=== PATIENT | male | born 1940 | race Caucasian/White ===

== ENCOUNTER 2018-04-03 12:12 | Emergency (ER) | payer MEDICAID, MEDICARE ==
[2018-04-03 12:12] VITALS: BMI 32.6
[2018-04-03 12:19] VITALS: O2SAT 95
[2018-04-03] MEDS ORDERED: Metoprolol Succinate 50 mg XL Tab PO STA (13:19)
[2018-04-03] MEDS ORDERED: Sodium Chloride 0.9% 1,000 ML IV ONE (13:24)
[2018-04-03 13:55] LABS: BASO # 0.1 K/uL (0.0-0.2); BASO % 0.8 % (0.0-2.0); EOS # 0.2 K/uL (0.0-0.7); EOS % 3.6 % (0.0-4.0); HEMOGLOBIN 14.7 g/dL (12.0-18.0); LYMPH # 1.5 K/uL (1.0-4.3); LYMPH % 22.5 % (20.0-40.0); MEAN CELL VOLUME 83.5 fl (80.0-94.0); MEAN CORPUSCULAR HEMOGLOBIN 27.6 pg (27.0-31.0); MEAN CORPUSCULAR HGB CONC 33.1 g/dL (33.0-37.0); MEAN PLATELET VOLUME 10.1 fl (7.2-11.7); MONO # 0.6 K/uL (0.0-0.8); MONO % 8.9 % (0.0-10.0); NEUT # 4.2 K/uL (1.8-7.0); NEUT % 64.2 % (50.0-75.0); NRBC % 0.2 % (0.0-0.0); RBC 5.32 Mil/uL (4.40-5.90); RED CELL DISTRIBUTION WIDTH 13.5 % (11.5-14.5); WHITE BLOOD COUNT 6.6 K/uL (4.8-10.8)
[2018-04-03 13:57] LABS: URINE BILIRUBIN NEGATIVE (NEGATIVE); URINE BLOOD NEGATIVE (NEGATIVE); URINE CLARITY CLEAR (Clear); URINE COLOR STRAW (YELLOW); URINE GLUCOSE (UA) NEG (NEGATIVE); URINE LEUKOCYTE ESTERASE NEG Leu/uL (Negative); URINE PROTEIN NEGATIVE (NEGATIVE); URINE UROBILINOGEN 0.2-1.0 mg/dL (0.2-1.0)
[2018-04-03 14:00] LABS: PROTHROMBIN TIME 10.9 Seconds (9.8-13.1)
[2018-04-03 14:03] LABS: PARTIAL THROMBOPLASTIN TIME 29.8 Seconds (25.6-37.1)
[2018-04-03 14:13] LABS: ALB/GLOB RATIO 1.4 (1.0-2.1); ALBUMIN 4.3 g/dL (3.5-5.0); ALT/SGPT 34 U/L (21-72); AST/SGOT 34 U/L (17-59); BLOOD UREA NITROGEN 23 mg/dl (9-20); GFR NON-AFRICAN AMERICAN > 60
[2018-04-03] MEDS: Levothyroxine 125 MCG TAB PO STA ×2 (14:27→14:29)
--- NOTE | 2018-04-03 17:33 | US ---
Date of service: 04/03/2018 PROCEDURE: Right lower extremity venous duplex Doppler. HISTORY: r/o dvt COMPARISON: Right lower extremity venous duplex ultrasound performed 03/30/[address] [facility]. TECHNIQUE: Common femoral, superficial femoral, popliteal and posterior tibial veins were evaluated. Flow was assessed with color Doppler, compressibility, assessment of phasic flow and augmentation response. FINDINGS: COMMON FEMORAL VEIN: Unremarkable. SUPERFICIAL FEMORAL VEIN: Unremarkable. POPLITEAL VEIN: Unremarkable. POSTERIOR TIBIAL VEIN: Unremarkable. OTHER FINDINGS: Complex structure in the popliteal fossa measuring 2.7 x 1.7 x 0.9 cm, possibly a complex Garcia's cyst. In the medial mid/distal calf there is a 9.1 x 1.7 x 4.3 cm hypoechoic avascular structure which is nonspecific and may represent hematoma. IMPRESSION: No evidence of deep venous thrombosis in the right lower extremity. New complex structures in the popliteal fossa possibly a complex Garcia's cyst. New complex structure in the medial aspect of the mid/distal calf possibly representing a hematoma.
--- NOTE | 2018-04-03 17:35 | ED PDOC ---
Lower Extremity Pain/Injury Time Seen by Provider: 04/03/18 13:05 Chief Complaint (Nursing): Lower Extremity Problem/Injury Chief Complaint (Provider): R/O DVT History Per: Patient, Family History/Exam Limitations: no limitations Onset/Duration Of Symptoms: Days (one week ) Additional Complaint(s): Pt presents to the ED several days s/p a DVT r/o at [facility] with his daughter (an MD) seeking a re-evaluation of a painful, mildly erythematous left lower extremity that is warm to the touch. 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 Pt dx at [place] was thrombophlebitis for whihc he was rx antibiotics Past Medical History Reviewed: Historical Data, Nursing Documentation, Vital Signs Vital Signs: Last Vital Signs Temp 98.3 F 04/03/18 12:18 Pulse 53 L 04/03/18 14:25 Resp 15 04/03/18 12:18 BP 132/82 04/03/18 14:25 Pulse Ox 95 04/03/18 12:18 - Medical History PMH: Arthritis, Diabetes, HTN, Hypercholesterolemia, Hyperlipidemia, Hypothyroidism Denies: Depression, Chronic Kidney Disease - Surgical History Surgical History: Coronary Stent (9 stents) Denies: Pacemaker - Family History Family History: States: CAD, Diabetes, Hypertension - Immunization History Hx Tetanus Toxoid Vaccination: No Hx Influenza Vaccination: Yes (11/2014) Hx Pneumococcal Vaccination: No - Home Medications Home Medications: Ambulatory Orders Medication Instructions Recorded Aspirin [Aspirin EC] 325 mg PO QAM 08/15/15 Levothyroxine [Synthroid] 112 mcg PO DAILY 08/15/15 Metoprolol Succinate XL [Toprol XL] 50 mg PO QAM 08/15/15 Simvastatin 40 mg PO QAM 08/15/15 Insulin Human (NPH)/Regular 35 units SQ BID 12/03/17 [Novolin 70/30 (70/30 units/ml) 10 ml] Irbesartan/Hydrochlorothiazide 1 tab PO QAM 12/03/17 [Irbesartan-Hydrochlorothiazide 12.5 mg-150 mg] Pregabalin [Lyrica] 100 mg PO BID 12/03/17 Clopidogrel [Plavix] 75 mg PO DAILY 12/05/17 Cephalexin [Keflex] 500 mg PO Q6H 5 Days #20 capsule 03/30/18 - Allergies Allergies/Adverse Reactions: Allergies Allergy/AdvReac Type Severity Reaction Status Date / Time No Known Allergies Allergy Verified 12/03/17 12:02 Wells Criteria for PE - Wells Criteria for Pulmonary Embolism Clinical Signs and Symptoms of DVT: No Total Score: 0 Review of Systems ROS Statement: Except As Marked, All Systems Reviewed And Found Negative Musculoskeletal: Positive for: Leg Pain Physical Exam - Reviewed Nursing Documentation Reviewed: Yes Vital Signs Reviewed: Yes - Physical Exam Appears: Positive for: Well, Non-toxic, No Acute Distress. Negative for: Un comfortable Head Exam: Positive for: ATRAUMATIC, NORMAL INSPECTION Skin: Positive for: Warm, Dry, Pallor (Lowr right Extremity is warm to touch, erythematous and has several hard bumps that are deep to the dermis). Negative for: Diaphoresis Eye Exam: Positive for: Normal appearance, Periorbital tenderness. Negative for: Nystagmus, Periorbital swelling Pulses-Carotid (L): 2+ Pulses-Carotid (R): 2+ Pulses-Dorsalis Pedis (L): 2+ Pulses-Dorsalis Pedis (R): 2+ Pulses-Post. Tibialis (L): 2+ Pulses-Post. Tibialis (R): 2+ Extremity: Positive for: Other (see above for skin) DTR - Knee (R): 2+ DTR - Knee (L): 2+ - Laboratory Results Result Diagrams: 04/03/18 13:26 04/03/18 13:26 Lab Results: PT 10.9 Seconds (9.8-13.1) 04/03/18 13:26 INR 1.0 04/03/18 13:26 APTT 29.8 Seconds (25.6-37.1) 04/03/18 13:26 Total Bilirubin 0.6 mg/dl (0.2-1.3) 04/03/18 13:26 AST 34 U/L (17-59) 04/03/18 13:26 ALT 34 U/L (21-72) 04/03/18 13:26 Alkaline Phosphatase 67 U/L (38-126) 04/03/18 13:26 Total Protein 7.4 G/DL (6.3-8.2) 04/03/18 13:26 Albumin 4.3 g/dL (3.5-5.0) 04/03/18 13:26 Globulin 3.1 gm/dL (2.2-3.9) 04/03/18 13:26 Albumin/Globulin Ratio 1.4 (1.0-2.1) 04/03/18 13:26 Urine Color Straw (YELLOW) 04/03/18 13:26 Urine Clarity Clear (Clear) 04/03/18 13:26 Urine pH 6.0 (5.0-8.0) 04/03/18 13:26 Ur Specific [place] 1.012 (1.003-1.030) 04/03/18 13:26 Urine Protein Negative mg/dL (NEGATIVE) 04/03/18 13:26 Urine Glucose (UA) Neg mg/dL (NEGATIVE) 04/03/18 13:26 Urine Ketones Negative mg/dL (NEGATIVE) 04/03/18 13:26 Urine Blood Negative (NEGATIVE) 04/03/18 13:26 Urine Nitrate Negative (NEGATIVE) 04/03/18 13:26 Urine Bilirubin Negative (NEGATIVE) 04/03/18 13:26 Urine Urobilinogen 0.2-1.0 mg/dL (0.2-1.0) 04/03/18 13:26 Ur Leukocyte Esterase Neg [place]/uL (Negative) 04/03/18 13:26 Urine RBC (Auto) 1 /hpf (0-3) 04/03/18 13:26 - ECG O2 Sat by Pulse Oximetry: 95 Medical Decision Making Medical Decision Making: r/o dvt us findings IMPRESSION: No evidence of deep venous thrombosis in the right lower extremity. New complex structures in the popliteal fossa possibly a complex Garcia's cyst. New complex structure in the medial aspect of the mid/distal calf possibly representing a hematoma. Disposition - Clinical Impression Clinical Impression: Garcia's cyst of knee, Hematoma of right lower extremity - Disposition Condition: STABLE Additional Instructions: FOLLOW UP WITH YOUR PRIMARY PHYSICIAN IN 3-4 DAYS YOU MAY CEASE TAKING THE ANTIBIOTICS THAT WERE PRESCRIBED TAKE ALL OF YOUR OTHER MEDICATIONS PRESCRIBED Instructions: Garcia's Cyst, Garcia's Cyst (DC), Contusion (DC) Forms: [employer] ([place])
[2018-04-03 17:53] VITALS: BP 158/74; PULSE 52; RESP 18; TEMP 98.1
== END 2018-04-03 17:51 | disposition home or self-care (01) ==
LOC: H.ER 12:12
DX: S80.11XA Contusion of right lower leg, initial encounter (principal); X58.XXXA Exposure to other specified factors, initial encounter; Y92.89 Other specified places as the place of occurrence of the external cause; M71.21 Synovial cyst of popliteal space [Baker], right knee; Z86.718 Personal history of other venous thrombosis and embolism; E03.9 Hypothyroidism, unspecified; E11.9 Type 2 diabetes mellitus without complications; E78.00 Pure hypercholesterolemia, unspecified; I10 Essential (primary) hypertension; Z79.4 Long term (current) use of insulin; Z79.82 Long term (current) use of aspirin; Z95.5 Presence of coronary angioplasty implant and graft; Z79.899 Other long term (current) drug therapy
CPT/HCPCS: 80053; 81003; 85025; 85610; 85730; 93971; 96360; 99285; J7030